=== PATIENT | female | born 1980 | race Caucasian/White ===

== ENCOUNTER 2016-12-15 18:50 | Emergency (ER) | payer OTHER ==
--- NOTE | 2016-12-15 18:59 | PDOC ---
Rapid Medical Evaluation Time Seen by Provider: 12/15/16 18:57 Medical Evaluation: Allergies Allergy/AdvReac Type Severity Reaction Status Date / Time No Known Allergies Allergy Verified 12/15/16 18:57 12/15/16 18:57 LMP 11/08/2016 OB: none No vag bleed Pain to pelvic area Worse when standing
[2016-12-15 19:01] VITALS: BP 126/78; PULSE 82; TEMP 98.3; BMI 32.4
[2016-12-15 19:44] LABS: URINE APPEARANCE CLEAR; URINE BILIRUBIN NEGATIVE (NEGATIVE); URINE BLOOD NEGATIVE (NEGATIVE); URINE COLOR STRAW; URINE GLUCOSE (UA) NEGATIVE (NEGATIVE); URINE KETONE NEGATIVE (NEGATIVE); URINE LEUK ESTERASE NEGATIVE (NEGATIVE); URINE NITRITE NEGATIVE (NEGATIVE); URINE PROTEIN NEGATIVE (NEGATIVE); URINE UROBILINOGEN NEGATIVE E.U./dl (0.2-1.0)
[2016-12-15 20:33] LABS: BASOPHIL 0.4 % (0-2.0); EOSINOPHIL 1.6 % (0-4.5); MCH 29.5 pg (25.7-33.7); MCHC 34.1 g/dl (32.0-36.0); MEAN CELL VOLUME 86.5 fl (80-96); NEUTROPHILS 62.4 % (42.8-82.8); PLATELET COUNT 240 K/MM3 (134-434); WHITE BLOOD COUNT 10.8 K/mm3 (4.0-10.0)
[2016-12-15] MEDS ORDERED: ACETAMINOPHEN 325 MG TABLET (FP) PO ONE (21:03)
[2016-12-15] MEDS ORDERED: ACETAMINOPHEN 325 MG TABLET (FP) ONE (21:04)
--- NOTE | 2016-12-15 22:06 | PDOC ---
History of Present Illness <AustinLexifiliberto Lane - Last Filed: 12/15/16 22:06> - History of Present Illness Initial Comments: 12/15/16 22:45 The patient is a 36 year old female with no past medical hx who presents to the ED complaining of diffuse lower abdominal pain for four days. The patient states her pain has been progressively worsening since the onset. The patient reports she saw her OB yesterday. The patients LMP was December 10, 2016. The patient denies vaginal bleeding, vomiting, nausea, dysuria The patient denies chest pain, SOB The patient denies fever, chills Social: No toxic habits reported Allergies: NKDA Surgical: None PCP: Dr. Rodriguez <Gayle Farris - Last Filed: 12/15/16 22:51> - General Chief Complaint: Pain, Acute Stated Complaint: ABDOMINAL PAIN Time Seen by Provider: 12/15/16 18:57 Past History - Past Medical History Other medical history: DENIES. - Psycho/Social/Smoking Cessation Hx Suicidal Ideation: No Smoking Status: Yes Smoking History: Former smoker Have you smoked in the past 12 months: No Number of Cigarettes Smoked Daily: 0.3 Information on smoking cessation initiated: No <Lexi Avila - Last Filed: 12/15/16 22:06> <Gayle Farris - Last Filed: 12/15/16 22:51> - Past Medical History Allergies/Adverse Reactions: Allergies Allergy/AdvReac Type Severity Reaction Status Date / Time No Known Allergies Allergy Verified 12/15/16 18:57 Home Medications: Ambulatory Orders Acetaminophen/Caffeine/Butalb [Fioricet] 1 each PO Q6H PRN #10 tablet 12/21/11 Review of Systems - Review of Systems Able to Perform ROS?: Yes Comments:: 12/15/16 22:45 CONSTITUTIONAL: Absent: fever, chills, diaphoresis, generalized weakness, malaise, loss of appetite HEENT: Absent: rhinorrhea, nasal congestion, throat pain, throat swelling, difficulty swallowing, mouth swelling, ear pain, eye pain, visual Changes CARDIOVASCULAR: Absent: chest pain, syncope, palpitations, irregular heart rate, lightheadedness , peripheral edema RESPIRATORY: Absent: cough, shortness of breath, dyspnea with exertion, orthopnea, wheezing, stridor, hemoptysis GASTROINTESTINAL: +Lower abdominal pain Absent: abdominal distension, nausea, vomiting, diarrhea, constipation, melena, hematochezia GENITOURINARY: Absent: vaginal bleeding, dysuria, frequency, urgency, hesitancy, hematuria, flank pain, genital pain MUSCULOSKELETAL: Absent: myalgia, arthralgia, joint swelling SKIN: Absent: rash, itching, pallor NEUROLOGIC: Absent: headache, focal weakness or paresthesias, dizziness, unsteady gait, seizure, mental status changes, bladder or bowel incontinence PSYCHIATRIC: Absent: anxiety, depression, suicidal or homicidal ideation, hallucinations. <Gayle Farris - Last Filed: 12/15/16 22:51> *Physical Exam - Vital Signs Last Vital Signs Temp Pulse Resp BP Pulse Ox 98.3 F 82 19 126/78 100 12/15/16 18:58 12/15/16 18:58 12/15/16 18:58 12/15/16 18:58 12/15/16 18:58 <Lexi Avila - Last Filed: 12/15/16 22:06> - Vital Signs Last Vital Signs Temp Pulse Resp BP Pulse Ox 98.3 F 82 19 126/78 100 12/15/16 18:58 12/15/16 18:58 12/15/16 18:58 12/15/16 18:58 12/15/16 18:58 - Physical Exam Comments: 12/15/16 22:46 GENERAL: Well developed, well nourished. Awake and alert. No acute distress. HEENT: Normocephalic, atraumatic. PERRLA, EOMI. No conjunctival pallor. Sclera are non- icteric. Moist mucous membranes. Oropharynx is clear. NECK: Supple. Full ROM. No JVD. Carotid pulses 2+ and symmetric, without bruits. No thyromegaly. No lymphadenopathy. CARDIOVASCULAR: Regular rate and rhythm. No murmurs, rubs, or gallops. Distal pulses are 2+ and symmetric. PULMONARY: No evidence of respiratory distress. Lungs clear to auscultation bilaterally. No wheezing, rales or rhonchi. ABDOMINAL: +Tenderness to the suprapubic region. Soft. Non-distended. No rebound or guarding. No organomegaly. Normoactive bowel sounds. MUSCULOSKELETAL Normal range of motion at all joints. No bony deformities or tenderness. No CVA tenderness. EXTREMITIES: No cyanosis. No clubbing. No edema. No calf tenderness. SKIN: Warm and dry. Normal capillary refill. No rashes. No jaundice. NEUROLOGICAL: Alert, awake, appropriate. Cranial nerves 2-12 intact. No deficits to light touch and temperature in face, upper extremities and lower extremities. No motor deficits in the in face, upper extremities and lower extremities. PSYCHIATRIC: Cooperative. Good eye contact. Appropriate mood and affect <Gayle Farris - Last Filed: 12/15/16 22:51> ED Treatment Course - LABORATORY CBC & Chemistry Diagram: 12/15/16 20:29 - ADDITIONAL ORDERS Additional order review: Laboratory Results 12/15/16 12/15/16 20:29 19:24 Beta HCG, Quant 09050.7 Urine Color Straw Urine Appearance Clear Urine pH 6.0 Ur Specific Bogard 1.020 Urine Protein Negative Urine Glucose (UA) Negative Urine Ketones Negative Urine Blood Negative Urine Nitrite Negative Urine Bilirubin Negative Urine Urobilinogen Negative Ur Leukocyte Esterase Negative 12/15/16 20:29 RBC 4.40 MCV 86.5 MCHC 34.1 RDW 13.0 MPV 9.0 Neutrophils % 62.4 Lymphocytes % 28.7 Monocytes % 6.9 Eosinophils % 1.6 Basophils % 0.4 - RADIOLOGY Radiology Studies Ordered: Category Date Time Status TRANSVAGINAL US PREG [US] Stat Ultrasound 12/15/16 20:26 Completed - Medications Given in the ED: ED Medications Discontinued Medications Generic Name Dose Route Start Last Admin Trade Name Freq PRN Reason Stop Dose Admin Acetaminophen 650 mg 12/15/16 21:03 12/15/16 21:06 Tylenol - PO 12/15/16 21:04 650 mg NOW ONE Administration <Lexi Avila - Last Filed: 12/15/16 22:06> - LABORATORY CBC & Chemistry Diagram: 12/15/16 20:29 - ADDITIONAL ORDERS Additional order review: Laboratory Results 12/15/16 12/15/16 12/15/16 20:29 20:29 19:24 Beta HCG, Quant 10701.7 Urine Color Straw Urine Appearance Clear Urine pH 6.0 Ur Specific [place] 1.020 Urine Protein Negative Urine Glucose (UA) Negative Urine Ketones Negative Urine Blood Negative Urine Nitrite Negative Urine Bilirubin Negative Urine Urobilinogen Negative Ur Leukocyte Esterase Negative Blood Type B POSITIVE Antibody Screen Negative 12/15/16 20:29 RBC 4.40 MCV 86.5 MCHC 34.1 RDW 13.0 MPV 9.0 Neutrophils % 62.4 Lymphocytes % 28.7 Monocytes % 6.9 Eosinophils % 1.6 Basophils % 0.4 - RADIOLOGY Radiograph Interpretation: 12/15/16 22:51 Transvaginal obstetrical ultrasound Clinical information: threatened ; LMP 11/09/2016 The exam demonstrates a single viable intrauterine gestation at approximately 6 weeks on the basis of crown-rump length. Embryonic cardiac rate 120 BPM. No subchorionic implantation bleed is noted. A 1.5 cm right ovarian cyst is noted. The left ovary appears unremarkable. There is no Doppler evidence of ovarian torsion, sensitivity 70%. No definite adnexal pathology is seen. There is no free intraperitoneal fluid. Impression: Single viable intrauterine gestation at approximately 6 weeks. Reported By: Shaji Venegas MD 12/15/16 [id number] - Medications Given in the ED: ED Medications Discontinued Medications Generic Name Dose Route Start Last Admin Trade Name Ryan PRN Reason Stop Dose Admin Acetaminophen 650 mg 12/15/16 21:03 12/15/16 21:06 Tylenol - PO 12/15/16 21:04 650 mg NOW ONE Administration <Gayle Farris - Last Filed: 12/15/16 22:51> *DC/Admit/Observation/Transfer <Lexi Avila - Last Filed: 12/15/16 22:06> - Attestations Scribe Attestion: 12/15/16 22:45 Documentation prepared by Gayle Farris, acting as director medical economics for Lexi Avila MD/DO. 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
== END 2016-12-15 22:15 | disposition home or self-care (01) ==
LOC: JER 18:50
DX: O26.891 Other specified pregnancy related conditions, first trimester (principal); O34.81 Maternal care for other abnormalities of pelvic organs, first trimester; N83.291 Other ovarian cyst, right side; Z3A.01 Less than 8 weeks gestation of pregnancy
CPT/HCPCS: 36415; 76817-TC; 81003; 84702; 85025; 86850; 86900; 86901; 99282-25

== ENCOUNTER 2017-06-27 16:15 | Inpatient (IN) | payer OTHER ==
[2017-06-27] MEDS: BETAMET ACET/BETAMET NA PH 30 MG/5 ML VIAL IM SCH (17:00)
[2017-06-27] MEDS ORDERED: SODIUM CHLORIDE 500 ML IV ONE ×2 (17:30→18:30)
--- NOTE | 2017-06-27 19:33 | HP ---
Past Medical History - Primary Care Physician PCP:: Mayra Vargas - Admission Chief Complaint: 36 yrs , 33.5/7 weeks by dates & sono is admitted for observation due to vaginal bleeding since 3.00 pm after sexual contact , while under observation in L&D spontaneous late decels were noted , uterine irrtablity is continued even after IV Hydration .bleeding is continuing scanty .c/o backache. Sono done today is reported 32.4 weeks, GA, Vx, Ant Placenta, Normal AFluid, EFW 4'15", Cx 1.87cm without funnelling History of Present Illness: PNC at , [facility] .Wt gain 14 lbs presently chart is not available, will request tomorrow in AM US from [facility] office are seen she has h/o GDM , is diet controlled Genetic counselling was done NT screen, AFP, & Materna T-21 is negative Pt was offered Inj 17 OHP for prevention of PTL, she had declined . 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 , h/o coplposcopy in past) ...: 7 ...Para: 1 ...: 1 (01/10/2004 33weeks PROM, 4'12" ) ...Induced : 5 (ist trimester abortions , last 2009) ...LMP: 11/04/16 ... Weeks Gestation by Dates: 33.5 ...EDC by Dates: 08/10/17 ...EDC by Sono: 08/10/17 (33.5 weeks ) Heme/Onc: No: Anemia Infectious Disease: No: HIV Psych: No: Addictions, Anxiety, Bipolar, Depression, Panic - Past Surgical History Past Surgical History: Yes: None Hx Myomectomy: No Hx Transabdominal Cerclage: No - Smoking History Smoking history: Former smoker Have you smoked in the past 12 months: No Aproximately how many cigarettes per day: 0.3 - Alcohol/Substance Use History of Substance Use: reports: None - Social History History of Recent Travel: No Home Medications - Allergies Allergies/Adverse Reactions: Allergies Allergy/AdvReac Type Severity Reaction Status Date / Time No Known Allergies Allergy Verified 06/27/17 22:12 - Home Medications Home Medications: Ambulatory Orders Vit/Iron Fumarate/FA [ Tablet] 1 tab PO DAILY 06/27/17 Physical Exam - Maternity Vital Signs: Vital Signs Temperature 98.3 F 06/27/17 16:33 Pulse Rate 80 06/27/17 16:33 Respiratory Rate 18 06/27/17 16:33 Blood Pressure 124/76 06/27/17 16:33 O2 Sat by Pulse Oximetry (%) Constitutional: Yes: Well Nourished, Obese (194 lbs) Eyes: Yes: WNL HENT: Yes: WNL, Normocephalic Neck: Yes: WNL Cardiovascular: Yes: WNL, Regular Rate and Rhythm Lungs: Clear to auscultation Breast(s): Yes: WNL - Abdominal Exam/OB Fundal Height: 34 Number of Fetuses: Single Presentation: Vertex Contractions: Yes Regularity: Irritability (2-3 min) Intensity: Mild Monitor Mode: External Heart Rate (range): 150 Category: II Accelerations: Uniform Decelerations: Late (6.40 to 6.48 PM recurrent late decls are seen . unable to r /o loss of contact, as per pt she was sitting up at that time) - Vaginal Exam/OB Vaginal Bleediing: Moderate, Fresh Blood (blood clot in cul de sac , trckling from cervix is noted) Speculum Exam: Yes (no lacerations of vagina, cervix, vulva ) Dilatation (cm): FT Effacement (%): 50 Amniotic Membrane Status: Intact Presentation: Vertex/Position Station: -3 - Physical Exam Musculoskeletal: Yes: WNL Extremities: Yes: WNL. No: Calf Tenderness Edema: No Integumentary: Yes: WNL Deep Tendon Reflex Grade: Normal +2 ...Motor Strength: WNL Psychiatric: Yes: WNL, Alert, Oriented - Labs Lab Results: Laboratory Tests 06/27/17 06/27/17 06/27/17 16:55 19:20 19:20 WBC 12.3 H Hgb 13.7 Hct 39.0 Plt Count 224 Neutrophils % 90.0 H D Lymphocytes % 7.3 L D Monocytes % 2.3 L Eosinophils % 0.3 D INR 0.96 PTT (Actin FS) 27.2 Sodium Potassium Chloride Carbon Dioxide BUN Creatinine POC Glucometer 94 Random Glucose Calcium Total Bilirubin AST ALT Blood Type 06/27/17 06/27/17 06/27/17 19:20 19:30 22:57 WBC Hgb Hct Plt Count Neutrophils % Lymphocytes % Monocytes % Eosinophils % INR PTT (Actin FS) Sodium 137 Potassium 3.9 Chloride 106 Carbon Dioxide 21 BUN 5 L Creatinine 0.4 L POC Glucometer 112 Random Glucose 90 Calcium 8.4 L Total Bilirubin 0.4 AST 28 ALT 54 Blood Type Cancelled Problem List - Problems (1) with 33 completed weeks gestation Code(s): Z3A.33 - 33 WEEKS GESTATION OF (2) Threatened labor, antepartum Code(s): O47.00 - FALSE LABOR BEFORE 37 COMPLETED WEEKS OF GEST, UNSP TRI (3) APH (antepartum hemorrhage) Code(s): O46.90 - ANTEPARTUM HEMORRHAGE, UNSPECIFIED, UNSPECIFIED TRIMESTER (4) AMA (advanced maternal age) multigravida 35+ Code(s): O09.529 - SUPERVISION OF ELDERLY MULTIGRAVIDA, UNSPECIFIED TRIMESTER Assessment/Plan 36 yrs ( AMA) , 33.4 weeks admitted for observation due to APH bleeding mild to moderate , late decels noted one time ,Threatened PTL, h/o labor in the past , GDM diet controlled Plan admit for observation of bleeding , unable to r/o abruptio placenta I will not tocolyse since FHR was category -2, bgm monitoring NPO until AM till FHR tracing is reassured , no bleeding continues & UC stop Will obtain chart from the clinic Betametahsone 12.5 mg x2 doses 24 hrs apart
[2017-06-27 19:58] LABS: BASOPHIL 0.1 % (0-2.0); EOSINOPHIL 0.3 % (0-4.5); MCH 29.9 pg (25.7-33.7); MCHC 35.1 g/dl (32.0-36.0); MEAN CELL VOLUME 85.2 fl (80-96); MEAN PLT VOLUME 9.9 fl (7.5-11.1); PLATELET COUNT 224 K/MM3 (134-434); RDW 13.3 % (11.6-15.6); WHITE BLOOD COUNT 12.3 K/mm3 (4.0-10.0)
[2017-06-27 20:11] LABS: INR 0.96 (0.82-1.09); PROTHROMBIN TIME (PATIENT) 10.5 SEC (9.98-11.88)
[2017-06-27 20:13] LABS: ALBUMIN 2.6 g/dl (3.4-5.0); ALK PHOS 164 U/L (45-117); ANION GAP 10 (8-16); BILIRUBIN,TOTAL 0.4 mg/dL (0.2-1.0); CALCIUM 8.4 mg/dL (8.5-10.1); CO2 21 mmol/L (21-32); CREATININE 0.4 mg/dL (0.55-1.02); GLUCOSE,RANDOM 90 mg/dL (74-106); SGOT/AST 28 U/L (15-37); SGPT/ALT 54 U/L (12-78); TOT PROT 6.3 g/dl (6.4-8.2)
[2017-06-27 20:14] LABS: ACTIVATED PTT 27.2 SECONDS (26.9-34.4)
[2017-06-27 23:24] VITALS: BMI 34.3
[2017-06-28] MEDS ORDERED: TERBUTALINE SULFATE 1 MG/1 ML VIAL SQ ONE (00:25)
--- NOTE | 2017-06-28 00:42 | PN ---
Progress Note (short form) - Note Progress Note: pt still has UC q2min ,uterine irrtablity pattern, no gross vaginal bleeding externally is noted Selected Entries 06/27/17 21:00 Temperature 98.3 F Pulse Rate 86 Blood Pressure 120/72 Plan Inj Brethine ).25 mg sq stat Problem List - Problems (1) with 33 completed weeks gestation Code(s): Z3A.33 - 33 WEEKS GESTATION OF (2) Threatened labor, antepartum Code(s): O47.00 - FALSE LABOR BEFORE 37 COMPLETED WEEKS OF GEST, UNSP TRI (3) APH (antepartum hemorrhage) Code(s): O46.90 - ANTEPARTUM HEMORRHAGE, UNSPECIFIED, UNSPECIFIED TRIMESTER (4) AMA (advanced maternal age) multigravida 35+ Code(s): O09.529 - SUPERVISION OF ELDERLY MULTIGRAVIDA, UNSPECIFIED TRIMESTER
[2017-06-28 01:12] LABS: URINE APPEARANCE SLCLOUDY; URINE BILIRUBIN NEGATIVE (NEGATIVE); URINE BLOOD 2+ (NEGATIVE); URINE COLOR YELLOW; URINE GLUCOSE (UA) NEGATIVE (NEGATIVE); URINE KETONE 2+ (NEGATIVE); URINE LEUK ESTERASE NEGATIVE (NEGATIVE); URINE NITRITE NEGATIVE (NEGATIVE); URINE PROTEIN NEGATIVE (NEGATIVE); URINE UROBILINOGEN NEGATIVE mg/dL (0.2-1.0)
[2017-06-28 01:17] LABS: URINE HYALINE CAST 3 /lpf; URINE MUCUS FEW; URINE RBC 1 /hpf (0-3); URINE WBC 1 /hpf (3-5)
--- NOTE | 2017-06-28 08:10 | PN ---
Progress Note (short form) - Note Progress Note: patient does not have vaginal bleeding externally any more she feels cramps sometimes FM are active monitor strip reviewed . uc q5-7 min mild. FHR 130-140 cat-1 Selected Entries 06/28/17 06/28/17 06:00 08:00 Temperature 98.1 F Pulse Rate 89 93 H Blood Pressure 120/57 114/55 repeat cbc from this AM is pending Laboratory Tests 06/27/17 06/28/17 22:57 06:08 POC Glucometer 112 113 official sono report :32.4 weeks, sliup, Vx, ant placenta, sara 15.8, cx length 2.0 cm , bpp8/8 ass: 33.5 weeks by original sono, APH , Threatened PTL for observation , short Cx length (2 cm), GDM Plan : Intermittent monitring ADA diet change IV fluids to saline lock ... give 2 nd dose of betamthasone at 4.00 pm if stable , discharge today at 5.00 PM cbc in AM pending Laboratory Tests 06/28/17 00:05 Urine Ketones 2+ H Urine Blood 2+ H Problem List - Problems (1) with 33 completed weeks gestation Code(s): Z3A.33 - 33 WEEKS GESTATION OF (2) Threatened labor, antepartum Code(s): O47.00 - FALSE LABOR BEFORE 37 COMPLETED WEEKS OF GEST, UNSP TRI (3) APH (antepartum hemorrhage) Code(s): O46.90 - ANTEPARTUM HEMORRHAGE, UNSPECIFIED, UNSPECIFIED TRIMESTER (4) AMA (advanced maternal age) multigravida 35+ Code(s): O09.529 - SUPERVISION OF ELDERLY MULTIGRAVIDA, UNSPECIFIED TRIMESTER
[2017-06-28 08:58] LABS: BASOPHIL 0.2 % (0-2.0); MCH 29.2 pg (25.7-33.7); MCHC 34.3 g/dl (32.0-36.0); MEAN CELL VOLUME 85.4 fl (80-96); MEAN PLT VOLUME 9.6 fl (7.5-11.1); NEUTROPHILS 85.5 % (42.8-82.8); PLATELET COUNT 232 K/MM3 (134-434); RDW 13.3 % (11.6-15.6); WHITE BLOOD COUNT 12.2 K/mm3 (4.0-10.0)
[2017-06-28 16:01] VITALS: BP 114/56; PULSE 88; TEMP 98
[2017-06-28] MEDS: BETAMET ACET/BETAMET NA PH 30 MG/5 ML VIAL IM SCH (16:30)
--- NOTE | 2017-06-29 23:42 | DS ---
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 No: CVA Tenderness - Left, CVA Tenderness - Right Vaginal Exam: Yes: Bleeding (light to moderate), Other (vaginal culture pos for GBS. small blood clot in post fornix at the time of admission) Cervix: Yes: Bleeding (stopped before discharge) Breast(s): Yes: WNL Musculoskeletal: Yes: WNL Extremities: Yes: WNL. No: Calf Tenderness Edema: Yes Edema: LLE: Trace, RLE: Trace Psychiatric: Yes: WNL, Alert, Oriented Labs: CBC, BMP 06/28/17 08:00 06/27/17 19:20 Laboratory Tests 06/27/17 06/28/17 06/28/17 22:57 06:08 10:38 POC Glucometer 112 113 174 06/28/17 14:44 POC Glucometer 117 Delivery, Single - Eagar Feeding Plan Initial Plan: Exclusive throughout hospitalization Remarks - Remarks Remarks: 36 yrs( AMA ) h/f 33.5 weeks presented on 06/27 with significant vaginal bleeding post sexual contact , & also c/o pain cramps monitor : UC q2-3 min . h/o GDM , diet controlled FHR 140-150 cat-1 sono ; IUP , 32.4 weeks, vx, ant placenta, no previa, EFW 4'15', FRANKO 15.8, cx 2.0 cm pt admitted for observation due to continued UC after Iv hydration , & recurrent late , variable decels were noted for 8 min . h/o PTL in past , prophylactic Betamethasone 12.5 mg total 2 dose 24 hrs apart given. One dose of Inj Brethine 0.25 mg sq was given for cessation of UC Pt was kept 12 hrs NPO until FHR stable , reassuring pattern remained stable Bgm monitoring ,was done, Ada diet given urine cuture & vaginal culture positive for GBS , pt was informed bytelephone rx sent to pharmacy rx po amoxcillin 500 mg tid she will f/u for NST & will keep her appt for sono with M office on 06/30/17 pt discharged on 06/29/17 , Discharge Summary Reason For Visit: LABOR Current Active Problems AMA (advanced maternal age) multigravida 35+ (Acute) APH (antepartum hemorrhage) (Acute) Gestational diabetes mellitus (GDM) in childbirth, diet controlled (Acute) Positive GBS test (Acute) with 33 completed weeks gestation (Acute) Threatened labor, antepartum (Acute) - Instructions Diet, Activity, Other Instructions: discharge to home maintain appointments NST on 06/30 at 10:30am return to hospital if you have contractions,vaginal bleeding , your water breaks or you do not feel the baby moving pelvic rest - no sex - nothing in vagina increase water intake - 10-12 glasses/day continue blood glucose testing as directed 06/29/17 urinc/s & vaginal cuulture report pos for GBS . Patient informed at home to [facility] , t/c pt notified, rx Amoxcillin 500 mg po tid x7 days ordered at [facility] on [address] ( tel # [phone]) Referrals: Mayra Vargas MD [Staff Physician] - Disposition: HOME - Home Medications Comprehensive Discharge Medication List: Ambulatory Orders Vit/Iron Fumarate/FA [ Tablet] 1 tab PO DAILY 06/27/17
== END 2017-06-28 17:40 | disposition home or self-care (01) | DRG 565 ==
LOC: JDEL 16:15 → JLDR 19:00
PROVIDERS: ADMIT Obstetrics & Gynecology; ATTEND Obstetrics & Gynecology
DX: O47.03 False labor before 37 completed weeks of gestation, third trimester (principal); O46.8X3 Other antepartum hemorrhage, third trimester
CPT/HCPCS: 36415; 76817-TC; 76819-TC; 80053; 81003; 81015; 85025; 85610; 85730; 86593; 86850; 86900; 86901; 87070; 87086; 87186; 87205; 96372

== ENCOUNTER 2017-07-07 21:20 | Inpatient (IN) | payer OTHER ==
[2017-07-08 02:30] LABS: BASOPHIL 0.2 % (0-2.0); EOSINOPHIL 0.7 % (0-4.5); MCH 29.8 pg (25.7-33.7); MCHC 34.7 g/dl (32.0-36.0); MEAN CELL VOLUME 85.8 fl (80-96); MEAN PLT VOLUME 10.3 fl (7.5-11.1); NEUTROPHILS 77.9 % (42.8-82.8); PLATELET COUNT 251 K/MM3 (134-434); RDW 13.2 % (11.6-15.6); WHITE BLOOD COUNT 14.3 K/mm3 (4.0-10.0)
[2017-07-08 02:42] LABS: INR 0.95 (0.82-1.09); PROTHROMBIN TIME (PATIENT) 10.4 SEC (9.98-11.88)
[2017-07-08 02:44] LABS: ACTIVATED PTT 27.8 SECONDS (26.9-34.4)
[2017-07-08 02:48] VITALS: BMI 34.3
[2017-07-08 02:49] LABS: ANION GAP 11 (8-16); CO2 25 mmol/L (21-32); CREATININE 0.5 mg/dL (0.55-1.02); GLUCOSE,RANDOM 104 mg/dL (74-106)
[2017-07-08 03:22] LABS: HIV 1 & 2 AB NEGATIVE; HIV 1 AGp24 NEGATIVE
[2017-07-08] MEDS ORDERED: ELECTROLYTE-148 SOLN 1,000 ML IV SCH (03:30)
--- NOTE | 2017-07-08 03:31 | HP ---
Past Medical History - Admission Chief Complaint: Contractions pain History of Present Illness: 35 yo @ 35 weeks gestation, presents c/o lower abdominal pain and back pain. She denies any rupture of membrane. She was previously seen on 06/27/17 for the same complaint. She already received a course of steroid. History Source: Patient Limitations to Obtaining History: No Limitations - Past Medical History ...: 7 ...Para: 1 ...Term: 0 ...: 1 ...Spon : 0 ...Induced : 5 ...Multiple Gestation: 0 ...LMP: 11/04/16 ... Weeks Gestation by Dates: 35.2 ...EDC by Dates: 08/10/17 - Past Surgical History Past Surgical History: Yes: None Hx Myomectomy: No Hx Transabdominal Cerclage: No - Smoking History Smoking history: Never smoked Have you smoked in the past 12 months: No Aproximately how many cigarettes per day: 0.3 If you are a former smoker, when did you quit?: MONTHS BEFORE - Alcohol/Substance Use Hx Alcohol Use: No History of Substance Use: reports: None - Social History Usual Living Arrangement: Yes: With Significant Other History of Recent Travel: No Home Medications - Allergies Allergies/Adverse Reactions: Allergies Allergy/AdvReac Type Severity Reaction Status Date / Time No Known Allergies Allergy Verified 06/27/17 22:12 - Home Medications Home Medications: Ambulatory Orders Vit/Iron Fumarate/FA [ Tablet] 1 tab PO DAILY 06/27/17 Family Disease History - Family Disease History Family History: Unremarkable Review of Systems - Review of Systems Constitutional: reports: No Symptoms Eyes: reports: No Symptoms HENT: reports: No Symptoms Neck: reports: No Symptoms Cardiovascular: reports: No Symptoms Respiratory: reports: No Symptoms Gastrointestinal: reports: No Symptoms Genitourinary: reports: Pain Breasts: reports: No Symptoms Reported Integumentary: reports: No Symptoms Neurological: reports: No Symptoms Psychiatric: reports: No Symptoms Pain Intensity: 5 Physical Exam - Maternity Vital Signs: Vital Signs Temperature 99.1 F 07/08/17 02:24 Pulse Rate 104 H 07/08/17 02:24 Respiratory Rate 20 07/08/17 02:24 Blood Pressure 126/80 07/08/17 02:24 O2 Sat by Pulse Oximetry (%) Constitutional: Yes: Well Nourished Eyes: Yes: Conjunctiva Clear HENT: Yes: Atraumatic Neck: Yes: Supple Cardiovascular: Yes: Regular Rate and Rhythm Lungs: Clear to auscultation - Abdominal Exam/OB Number of Fetuses: Single Presentation: Vertex - Vaginal Exam/OB Vaginal Bleediing: Light Dilatation (cm): 0 Effacement (%): 90 Amniotic Membrane Status: Intact Station: -2 - Physical Exam Musculoskeletal: Yes: WNL Extremities: Yes: WNL ...Motor Strength: WNL Psychiatric: Yes: Alert, Oriented - Labs Lab Results: CBC, BMP 07/08/17 02:10 07/08/17 02:10 Assessment/Plan IUP @ 35 weeks Threatened labor Status post steroid Continue monitoring IV fluid Re-evaluate to verify cervical change
--- NOTE | 2017-07-08 03:44 | PN ---
Progress Note (short form) - Note Progress Note: 36 yo @ 35 weeks, with threatened labor, seen and evaluated. She's lying in bed c/o mild discomfort. FHR : 150's, occasional decelerations [place] : No contractions VE : Cervix closed but effaced ( 90% ) + bloody discharge, No ROM ASS / Plan : IUP @ 35 weeks Threatened labor Continue monitoring Extensive discussion with patient regarding management Decision made to have BPP in am Possible induction of labor Possible primary
[2017-07-08] MEDS ORDERED: ELECTROLYTE-148 SOLN 1,000 ML IV ONE (06:00)
[2017-07-08] MEDS ORDERED: AMPICILLIN - 2 GM in SODIUM CHLORIDE 100 ML IVPB ONE (10:45)
--- NOTE | 2017-07-08 12:53 | PN ---
Progress Note (short form) - Note Progress Note: 36 yrs EDC 08/10/17 by dates & sono , GDM diet controlled, admitted by Dr Garibay for Threatened PTL for observation because sometimes variable deceleration was noted & BPP by MFM & Dr Andersen's opinion Pt is s/p Steroids taken on 06/27 & 06/28, short cervix h/o GBS vaginal & urine cultures pos from 06/27 admission, , pt was called on 06/29/17 to [facility] for Amoxcillin 500 mg tid from her pharmacy at [facility] , she did not [facility] until 07/04 , she did not take her meds yesterday Sono & Bpp report from today 07/08/17 : 35.2/7 weeks, Vx Ant Placenta FRANKO 9.23, BPP8/8 monitor strip was reviewed by him at 9.15 AM , he recommended further monitoring . pt was kept on continuous monitoring At 9.30 AM one spontaneous late deceleration was seen to 80-90 bpm for 2 min, . since then FHR tracing has been category -1, base line 140 bpm. No UC are seen . 12.[address] Andersen came to L&D to review the monitor strip , Reassuring heart tracing he recommended to discharge the patient ,Repeat NST & BPP on 07/09/17 Selected Entries 07/08/17 07/08/17 11:00 12:00 Temperature 98.5 F Pulse Rate 75 77 Blood Pressure 127/81 117/80 Laboratory Tests 07/08/17 08:42 POC Glucometer 92 Plan discharge the patient today.
[2017-07-08] MEDS ORDERED: AMPICILLIN - 1 GM in SODIUM CHLORIDE 100 ML IVPB ONE (14:00)
[2017-07-08 14:32] VITALS: BP 114/63; PULSE 81; TEMP 99.4
== END 2017-07-08 14:45 | disposition home or self-care (01) | DRG 563 ==
LOC: JDEL 21:20 → JLDR 07-08 02:00
PROVIDERS: ADMIT Obstetrics & Gynecology; ATTEND Obstetrics & Gynecology
DX: O60.03 Preterm labor without delivery, third trimester (principal); O24.410 Gestational diabetes mellitus in pregnancy, diet controlled; Z3A.35 35 weeks gestation of pregnancy; O76 Abnormality in fetal heart rate and rhythm complicating labor and delivery
CPT/HCPCS: 36415; 80048; 85025; 85610; 85730; 86593; 86850; 86900; 86901; 87389

== ENCOUNTER 2017-07-11 04:15 | Inpatient (IN) | payer OTHER ==
[2017-07-11] MEDS: OXYTOCIN 20 UNITS in 0.9% NS 1,000 ML IV SCH ×2 (04:42→09:00)
[2017-07-11] MEDS ORDERED: BISACODYL 10 MG SUPP.RECT RC PRN (05:06)
[2017-07-11] MEDS ORDERED: METHYLERGONOVINE MALEATE 0.2 MG/1 ML AMP IM PRN (05:06)
[2017-07-11] MEDS ORDERED: WITCH HAZEL 50% (TUCKS) 40 PAD/JAR PAD TP PRN (05:06)
[2017-07-11] MEDS ORDERED: ACETAMINOPHEN 325 MG TABLET (FP) PO PRN (05:06)
[2017-07-11] MEDS ORDERED: IBUPROFEN 600 MG TABLET (FP) PO PRN (05:06)
[2017-07-11] MEDS ORDERED: BENZOCAINE 20% 57 GM BOTTLE TP PRN (05:06)
[2017-07-11] MEDS ORDERED: BENZOCAINE 28 GM HEMORRHOIDAL OINTMENT TP PRN (05:06)
--- NOTE | 2017-07-11 05:14 | HP ---
Past Medical History - Admission Chief Complaint: Labor pain History of Present Illness: 36 yo @ 36 weeks gestation, presents c/o labor pain stating after spontaneous rupture of membrane at home. Upon admission she was 6 cm dilated and pushing. History Source: Patient Limitations to Obtaining History: No Limitations - Past Medical History ...: 7 ...Para: 1 ...EDC by Tamiko: 08/10/17 - Past Surgical History Past Surgical History: Yes: None Hx Myomectomy: No Hx Transabdominal Cerclage: No - Smoking History Smoking history: Never smoked Have you smoked in the past 12 months: No Aproximately how many cigarettes per day: 0.3 If you are a former smoker, when did you quit?: MONTHS BEFORE - Alcohol/Substance Use Hx Alcohol Use: No History of Substance Use: reports: None - Social History Usual Living Arrangement: Yes: With Significant Other History of Recent Travel: No Home Medications - Allergies Allergies/Adverse Reactions: Allergies Allergy/AdvReac Type Severity Reaction Status Date / Time No Known Allergies Allergy Verified 07/09/17 12:41 - Home Medications Home Medications: Ambulatory Orders Vit/Iron Fumarate/FA [ Tablet] 1 tab PO DAILY 06/27/17 Ferrous Sulfate [Feosol] 1 tablet PO DAILY 07/11/17 Review of Systems - Review of Systems Constitutional: reports: No Symptoms Eyes: reports: No Symptoms HENT: reports: No Symptoms Neck: reports: No Symptoms Cardiovascular: reports: No Symptoms Respiratory: reports: No Symptoms Gastrointestinal: reports: No Symptoms Genitourinary: reports: Pain Breasts: reports: No Symptoms Reported Musculoskeletal: reports: No Symptoms Integumentary: reports: No Symptoms Neurological: reports: No Symptoms Endocrine: reports: No Symptoms Hematology/Lymphatic: reports: No Symptoms Psychiatric: reports: No Symptoms Pain Intensity: 10 Physical Exam - Maternity Constitutional: Yes: Well Nourished Eyes: Yes: Conjunctiva Clear HENT: Yes: Atraumatic Neck: Yes: Supple Cardiovascular: Yes: Regular Rate and Rhythm Lungs: Clear to auscultation - Abdominal Exam/OB Number of Fetuses: Single Presentation: Vertex Contractions: Yes Intensity: Strong - Vaginal Exam/OB Vaginal Bleediing: No Dilatation (cm): 6 Effacement (%): 100 Amniotic Membrane Status: Ruptured Amniotic Fluid: Yes: Clear Station: -1 - Physical Exam ...Motor Strength: WNL Psychiatric: Yes: Alert, Oriented Problem List - Problems (1) Pain during labor Code(s): O99.89 - OTH DISEASES AND CONDITIONS COMPL PREG/CHLDBRTH R52 - PAIN, UNSPECIFIED (2) Status post normal vaginal delivery Code(s): NVC0523 - (3) delivery, delivered Code(s): O60.10X0 - LABOR W DELIVERY, UNSP TRIMESTER, UNSP Assessment/Plan Active labor Admit to L&D
[2017-07-11] MEDS ORDERED: ELECTROLYTE-148 SOLN 1,000 ML IV SCH (05:15)
[2017-07-11 05:18] VITALS: BMI 34.3
--- NOTE | 2017-07-11 05:20 | PN ---
Delivery - Delivery Vaginal Delivery: Spontaneous Episiotomy/Laceration: None EBL (cc): 250 Remarks - Remarks Remarks: Normal spontaneous vaginal delivery of a live girl over intact perineum. Nose / Oropharynx suctioned @ perineum. Cord clamped and cut. Placenta expelled spontaneously intact.
[2017-07-11] MEDS: FERROUS SO4 325 MG TABLET (FP) PO SCH ×3 (07:38→17:09)
[2017-07-11] MEDS ORDERED: TUBERCULIN PPD 5 TU/0.1ML SYRINGE (IN PATIENT USE ONLY) ID ONE (10:00)
[2017-07-11] MEDS: PRENATAL VITAMINS W/ FOLIC ACID TABLET (FP) PO SCH (10:30)
[2017-07-12 07:50] LABS: BASOPHIL 0.4 % (0-2.0); EOSINOPHIL 1.4 % (0-4.5); MCH 29.1 pg (25.7-33.7); MEAN CELL VOLUME 85.8 fl (80-96); MEAN PLT VOLUME 9.6 fl (7.5-11.1); NEUTROPHILS 68.3 % (42.8-82.8); PLATELET COUNT 205 K/MM3 (134-434); WHITE BLOOD COUNT 9.5 K/mm3 (4.0-10.0)
[2017-07-12] MEDS: FERROUS SO4 325 MG TABLET (FP) PO SCH ×3 (07:51→17:09)
--- NOTE | 2017-07-12 09:56 | PN ---
Post Progress Note - Subjective Subjective: 36 yo Para 2, status post normal vaginal delivery, seen and evaluated. Doing well. Type of Delivery: Vital Signs: Vital Signs Temperature 98.0 F 07/12/17 09:00 Pulse Rate 82 07/12/17 09:00 Respiratory Rate 18 07/12/17 09:00 Blood Pressure 145/87 07/12/17 09:00 O2 Sat by Pulse Oximetry (%) 98 07/12/17 09:00 Breast Exam: Yes: Soft Uterus: Yes: Fundus Firm Abdomen/GI: Yes: Abdomen soft, Tolerating PO Lochia: Yes: Rubra Lochia, amount: Small Extremities: Yes: Calves non-tender Perineum: Yes: Intact Activity: Ambulating - Labs Labs: CBC WBC 9.5 K/mm3 (4.0-10.0) D 07/12/17 06:00 RBC 4.53 M/mm3 (3.60-5.2) 07/12/17 06:00 Hgb 13.2 GM/dL (10.7-15.3) 07/12/17 06:00 Hct 38.9 % (32.4-45.2) 07/12/17 06:00 MCV 85.8 fl (80-96) 07/12/17 06:00 MCH 29.1 pg (25.7-33.7) 07/12/17 06:00 MCHC 34.0 g/dl (32.0-36.0) 07/12/17 06:00 RDW 13.0 % (11.6-15.6) 07/12/17 06:00 Plt Count 205 K/MM3 (134-434) 07/12/17 06:00 MPV 9.6 fl (7.5-11.1) 07/12/17 06:00 Neutrophils % 68.3 % (42.8-82.8) 07/12/17 06:00 Lymphocytes % 24.7 % (8-40) D 07/12/17 06:00 Monocytes % 5.2 % (3.8-10.2) 07/12/17 06:00 Eosinophils % 1.4 % (0-4.5) D 07/12/17 06:00 Basophils % 0.4 % (0-2.0) 07/12/17 06:00 Problem List - Problems (1) Pain during labor Code(s): O99.89 - OTH DISEASES AND CONDITIONS COMPL PREG/CHLDBRTH R52 - PAIN, UNSPECIFIED (2) Status post normal vaginal delivery Code(s): [id number] - (3) delivery, delivered Code(s): O60.10X0 - LABOR W DELIVERY, UNSP TRIMESTER, UNSP Assessment/Plan Status post vaginal delivery Stable Continue routine care
[2017-07-12] MEDS ORDERED: DIPHTH,PERTUSS(ACELL),TET 0.5 ML DISP.SYRIN IM ONE (10:00)
[2017-07-12] MEDS: PRENATAL VITAMINS W/ FOLIC ACID TABLET (FP) PO SCH (10:20)
[2017-07-12] MEDS ORDERED: SENNOSIDES/DOCUSATE COMBO (SENNA PLUS) TABLET (UD) PO PRN (22:00)
[2017-07-13] MEDS: FERROUS SO4 325 MG TABLET (FP) PO SCH ×2 (08:13→11:26)
[2017-07-13] MEDS: PRENATAL VITAMINS W/ FOLIC ACID TABLET (FP) PO SCH (09:56)
[2017-07-13 10:33] VITALS: BP 120/76; PULSE 78; TEMP 98.4
== END 2017-07-13 13:45 | disposition home or self-care (01) | DRG 560 ==
LOC: JLDR 04:15 → J3W 06:00
PROVIDERS: ADMIT Obstetrics & Gynecology; ATTEND Obstetrics & Gynecology
PROC: 10E0XZZ Delivery of Products of Conception, External Approach (ICD-10-PCS; principal; 2017-07-11)
DX: O80 Encounter for full-term uncomplicated delivery (principal); Z3A.36 36 weeks gestation of pregnancy; Z37.0 Single live birth
CPT/HCPCS: 36415; 59409; 85025; 86850; 86900; 86901; 90715